=== PATIENT | female | born 2000 | race Asian ===

== ENCOUNTER 2021-06-27 08:00 | Inpatient (IN) ==
[2021-06-27] MEDS ORDERED: OXYTOCIN 30 UNITS/500 ML BAG IV PRN ×3 (09:07→23:18)
--- NOTE | 2021-06-27 09:16 | History & Physical Report ---
Date of Service June 27, 2021 Assessment & Plan (1) Encounter for supervision of normal in multigravida, antepartum: Plan: Admit to L&D, EFM/toco. IVF. Labs. Pen G for GBS prophylaxis. Glucose check on admission. Pt prefers to try to labor naturally if she can, will wait to see if ctx increase on their own - discussed that if no labor pattern by about 12:45, then would recommend pitocin at that time, she is agreeable with this plan. Electric Organ Assembler iPad used. Admission and Anticipated Discharge Date Admission Date: June 27, 2021 History of Present Illness Chief Complaint: rupture of membranes Primary Care Provider: NO PCP 20yo @ 38 06/21, spontaneous rupture of membranes for clear fluid at 6:45 am today. No bleeding. + movement. Feeling irreg ctx. with late transfer of care from [facility]. Diagnosed with gestational diabetes within the past few weeks, had been taking glucophage for the first 5 months of . Appears to be a large baby based on recent US. GBS+. Rh negative, rec'd Rhogam. Allergies Allergy/AdvReac Type Severity Reaction Status Date / Time No Known Allergies Allergy Verified 06/22/21 12:49 Home Medications Medication Instructions Recorded Confirmed Type ferrous sulfate [Iron (ferrous PO 06/15/21 06/22/21 History sulfate)] folic acid PO 06/15/21 06/22/21 History cephalexin 500 mg capsule 500 mg PO TID 7 Days #21 cap 06/18/21 06/22/21 Rx Patient History Medical History Missed Surgical History H/O dilation and curettage Family History Uncle Diabetes Denies family history of Ovarian cancer Prostate cancer Breast cancer Lung cancer Colorectal cancer Cancer Social History (Updated 06/15/21 @ 13:11 by Keya Ortega RN) Smoking Status: Never smoker Second Hand Exposure: No; Hx Alcohol Use: No Hx Substance Use: No Preferred Language: Icelandic Communication Ability: IPAD Communication Tools: IPad Hearing Ability: Normal Electric Organ Assembler Required: Yes Beliefs That Will Affect Care: Cultural Cultural Beliefs: The patient is [employer]. marital status: marital status details: Jose Carlos Crawford (27) [phone] Current Living Situation: Spouse Current Living Situation Comment: FOB and no pets current occupational status: unemployed Other Information That Helps Us Care for You: No Feels Safe at Home: Yes Safety Concerns: Feels Safe At This Time Assistive Devices: None Review of Systems All systems reviewed & are unremarkable except as noted in HPI & below Physical Exam Physical Exam: SVE 3/80/-2 Constitutional: WD/WN, vitals as above Respiratory: normal respiratory effort, lungs clear to auscultation no respiratory distress Cardiovascular: Rate/Rhythm: regular rate and regular rhythm Gastrointestinal (Abdomen): Inspection/Auscultation: abdomen normal to inspection Percussion/Palpation: abdomen soft; abdomen nontender Gravid. No s/s chorio or abruption. Skin: no rashes, warm and dry Psychiatric: A+Ox3, euthymic affect Results & Data ([facility]) Vital Signs (Past 12 Hours) Vital Signs Temp Pulse Resp BP 06/27/21 08:21 36.8 C 20 06/27/21 08:11 63 116/74 Monitoring External Monitor FHT Cat 1, reactive [place] Q 7 Coding Level of Care Code None Diagnoses Encounter for supervision of normal in multigravida, antepartum Z34.80
[2021-06-27] MEDS ORDERED: PENICILLIN G POTASSIUM 6 MU in DEXTROSE 5% 250 ML IV ONE (09:30)
[2021-06-27 09:33] LABS: Hematocrit (blood only) 38.1 % (37-47); Hemoglobin 13.1 g/dL (12.0-16.0); Mean Corpuscular Hemoglobin 31.6 pg (25-34); Mean Corpuscular Hgb Conc 34.4 g/dL (32-36); Mean Platelet Volume 12.7 fL (7.4-10.4); Platelet Count 144 K/uL (130-400); RDW Coefficient of Variation 11.7 % (11.5-14.5); Red Blood Count 4.14 M/uL (4.2-5.4); White Blood Count 6.15 K/uL (4.8-10.8)
[2021-06-27] MEDS: LACTATED RINGER'S 1,000 ML IV PRN ×3 (10:09→16:06)
[2021-06-27] MEDS ORDERED: DEXTROSE 50% 50 ML SYRINGE IV PRN (11:07)
[2021-06-27] MEDS ORDERED: INSULIN REGULAR 250 UNITS in SODIUM CHLORIDE 0.9% 247.5 ML IV PRN ×2 (11:07→19:15)
[2021-06-27] MEDS ORDERED: SODIUM CHLORIDE 0.9% 1000ML 1,000 ML IV PRN (11:07)
[2021-06-27] MEDS ORDERED: DEXTROSE 5% 1,000 ML IV PRN (11:07)
[2021-06-27] MEDS ORDERED: CARBOHYDRATES FOR HYPOGLYCEMIA PO PRN (11:45)
[2021-06-27] MEDS ORDERED: GLUCAGON FOR INJ 1 MG VIAL IM PRN (11:45)
[2021-06-27] MEDS ORDERED: GLUCOSE 10 TABS/TUBE PO PRN (11:45)
[2021-06-27] MEDS ORDERED: GLUCOSE 40% GEL 15 GM TUBE PO PRN (11:45)
[2021-06-27] MEDS: PENICILLIN G POTASSIUM 3 MU in DEXTROSE 5% 100 ML IV PRN ×2 (13:58→17:52)
[2021-06-27] MEDS ORDERED: SODIUM CHLORIDE 0.9% INJ 10 ML VIAL ONE (14:16)
[2021-06-27] MEDS ORDERED: ePHEDrine sulfate 50 MG/ML AMP ONE (14:16)
[2021-06-27] MEDS ORDERED: BUPIVACAINE 0.25% 30 ML VIAL ONE (14:16)
[2021-06-27] MEDS ORDERED: fentaNYL 2MCG/ML ROPIVACAINE 1.25MG/ML 100 ML BAG EPI ONE (14:17)
[2021-06-27] MEDS ORDERED: fentaNYL citrate 100 MCG/2 ML VIAL ONE (14:17)
[2021-06-27] MEDS ORDERED: NALBUPHINE HCL INJ 10 MG/ML AMP IV PRN (14:20)
[2021-06-27] MEDS ORDERED: fentaNYL 2MCG/ML ROPIVACAINE 1.25MG/ML 100 ML BAG EPI PRN (14:20)
[2021-06-27] MEDS ORDERED: ONDANSETRON INJ 2 MG/ML 2 ML VIAL IV PRN (14:20)
[2021-06-27] MEDS ORDERED: diphenhydrAMINE 50 MG/ML VIAL IV PRN (14:20)
[2021-06-27] MEDS ORDERED: ePHEDrine sulfate 50 MG/ML AMP IV PRN (14:20)
[2021-06-27] MEDS ORDERED: NALOXONE HCL 0.4 MG/1 ML VIAL/CARP IV PRN (14:20)
[2021-06-27] MEDS ORDERED: NALOXONE HCL 1 MG in SODIUM CHLORIDE 0.9% 1000ML 1,000 ML IV PRN (14:20)
--- NOTE | 2021-06-27 14:37 | Anesthesiology Consultation ---
Date of Service June 27, 2021 Assessment & Plan Chart Review Chart Review: Patient NOT seen in Pre Admission Testing and Acceptable Risk for Labor Epidural Consults Requested none ASA ASA2 Proposed Anesthesia Anesthesia Type: Labor Epidural and CSE Risk / Benefits Reviewed With: PT / POA / Parent / Guardian, Accepts Plan and Informed Consent Obtained History Height/Weight Height: 5 ft 3.78 in Weight: 69.853 kg Allergies Allergy/AdvReac Type Severity Reaction Status Date / Time No Known Allergies Allergy Verified 06/22/21 12:49 Medications Home Medications Medication Instructions Recorded Confirmed Last Taken ferrous sulfate [Iron (ferrous PO 06/15/21 06/22/21 06/26/21 sulfate)] folic acid PO 06/15/21 06/22/21 06/26/21 cephalexin 500 mg capsule 500 mg PO TID 7 Days #21 cap 06/18/21 06/22/21 06/26/21 Active Medications Generic Name Dose Route Start Last Admin Trade Name Freq PRN Reason Stop Dose Admin Oxytocin 30 units in 500 mls @ 3 mls/hr 06/27/21 09:07 06/27/21 13:14 Pitocin IV 06/29/21 09:06 0.18 units/hr .Q24H PRN 3 mls/hr Labor Induction/Augmentation Titration Protocol 0.18 UNITS/HR Lactated Ringer's 1,000 mls @ 125 mls/hr 06/27/21 09:07 06/27/21 14:32 Lr IV 06/29/21 09:06 999 mls/hr .Q8H PRN Administration L&D Protocol Protocol Penicillin G Potassium 3 mu/ 106 mls @ 100 mls/hr 06/27/21 12:07 06/27/21 13:58 Dextrose IV 07/07/21 12:06 100 mls/hr Q4H PRN Administration GBS(+) Until Delivery Dextrose 1,000 mls @ 100 mls/hr 06/27/21 11:07 06/27/21 13:00 D5w IV 07/27/21 11:06 75 mls/hr .Q10H PRN Infusion BSG 180 or below Protocol Insulin Human Regular 250 250 mls @ 0 mls/hr 06/27/21 11:07 06/27/21 14:01 units/ Sodium Chloride IV 07/27/21 11:06 1 units/hr .Q0M PRN 1 mls/hr BSG 80mg/dL or ABOVE Titration Protocol Per Protocol NPO Date Last Intake of Fluids: 06/27/21 Time Last Intake of Fluids: 13:00 Date Last Intake of Solids: 06/27/21 Time Last Intake of Solids: 06:45 Past Medical History Medical History Gestational diabetes mellitus Missed Exercise / Class Metabolic Activity II 4-5 Yardwork/Stairs/Walk up hill Past Family History Family History Uncle Diabetes Denies family history of Ovarian cancer Prostate cancer Breast cancer Lung cancer Colorectal cancer Cancer Past Surgical History Surgical History H/O dilation and curettage Past Anesthesia History No Hx of Anesthesia Complications and No Family Hx of Anesthesia Complications History of PONV No Hx of PONV and No Hx of Motion Sickness Social History Smoking Status: Never smoker Hx Alcohol Use: No Hx Substance Use: No Review of Systems no chest pain or sob Physical Exam Vital Signs Last Vital Signs Temp 36.8 C 06/27/21 12:39 Pulse 66 06/27/21 14:33 Resp 18 06/27/21 13:58 BP 132/84 06/27/21 13:58 Pulse Ox 100 06/27/21 14:33 ENMT Mouth: no TMJ abnormality Thyromental Distance: > or= 3.5 Finger Breadths Mallampati Class: II Neck normal visual inspection Respiratory normal respiratory effort Auscultation: lungs clear to auscultation bilaterally Cardiovascular Rate/Rhythm: regular rate and regular rhythm Musculoskeletal Spine: normal cervical ROM Neurologic moves all extremities Psychiatric Orientation: alert and oriented x 3 Testing Laboratory Results 06/27/21 09:20 Blood Type B Negative 06/27/21 09:20 Antibody Screen POSITIVE A 06/27/21 09:20 06/27/21 06/27/21 06/27/21 14:01 13:01 12:03 POC Glucose 108 H 107 H 107 H 06/27/21 06/27/21 06/27/21 11:03 10:00 08:14 POC Glucose 159 H 125 H 116 H
--- NOTE | 2021-06-27 18:10 | Labor Progress Brief Note ---
Date of Service June 27, 2021 Subjective Comfortable with epidural. Blood sugars stable. FHT Cat 1 [place] Q 2-4 SVE per RN similar to earlier exam. Will continue increasing pitocin as able to obtain better contraction pattern. Assessment & Plan Admission and Anticipated Discharge Date Admission Date: June 27, 2021 Results & Data ([facility]) Vital Signs (Past 12 Hours) Vital Signs Temp Pulse Resp BP Pulse Ox 06/27/21 18:06 63 123/57 L 06/27/21 18:03 64 96 06/27/21 17:58 64 96 06/27/21 17:53 60 96 06/27/21 17:49 62 110/74 06/27/21 17:48 63 95 06/27/21 17:43 61 96 06/27/21 17:38 62 96 06/27/21 17:35 71 127/79 06/27/21 17:33 63 96 06/27/21 17:28 63 96 06/27/21 17:23 61 96 06/27/21 17:20 63 112/71 06/27/21 17:18 62 96 06/27/21 17:13 73 98 06/27/21 17:08 66 97 06/27/21 17:03 75 97 06/27/21 16:58 65 96 06/27/21 16:53 90 96 06/27/21 16:50 36.8 C 65 18 107/67 06/27/21 16:48 64 95 06/27/21 16:43 72 95 06/27/21 16:38 67 96 06/27/21 16:35 66 110/67 06/27/21 16:33 65 96 06/27/21 16:28 69 96 06/27/21 16:23 69 96 06/27/21 16:20 62 111/67 06/27/21 16:18 78 96 06/27/21 16:13 64 96 06/27/21 16:08 77 96 06/27/21 16:05 77 18 105/68 06/27/21 16:03 65 96 06/27/21 15:58 73 96 06/27/21 15:53 65 98 06/27/21 15:49 80 20 105/65 06/27/21 15:48 71 96 06/27/21 15:43 71 97 06/27/21 15:38 62 97 06/27/21 15:35 63 20 139/68 06/27/21 15:33 65 97 06/27/21 15:28 60 96 06/27/21 15:23 59 L 97 06/27/21 15:18 64 20 150/70 H 99 06/27/21 15:14 64 88/56 L 06/27/21 15:13 65 97 06/27/21 15:08 68 143/59 H 97 06/27/21 15:05 61 18 92/54 L 06/27/21 15:03 36.8 C 61 16 103/66 97 06/27/21 15:01 65 18 102/64 06/27/21 14:59 65 102/58 L 06/27/21 14:58 68 99 06/27/21 14:57 61 105/56 L 06/27/21 14:53 65 98/66 L 99 06/27/21 14:51 66 100/66 06/27/21 14:49 72 103/67 06/27/21 14:48 70 95 06/27/21 14:47 60 18 118/78 06/27/21 14:45 67 115/82 06/27/21 14:43 72 100 06/27/21 14:38 71 99 06/27/21 14:33 66 100 06/27/21 14:28 58 L 100 06/27/21 13:58 71 18 132/84 06/27/21 12:39 36.8 C 61 20 110/72 06/27/21 11:04 36.8 C 70 20 127/78 06/27/21 09:00 36.8 C 18 06/27/21 08:21 36.8 C 20 06/27/21 08:11 63 116/74 Coding Level of Care Code None
--- NOTE | 2021-06-27 20:20 | Labor Progress Brief Note ---
Date of Service June 27, 2021 Subjective Comfortable with epidural, not feeling urge to push yet. FHT Cat 1 [place] Q 2 SVE anterior lip/1+ Continue labor, will notify us when she is feeling urge to push. Assessment & Plan Admission and Anticipated Discharge Date Admission Date: June 27, 2021 Results & Data ([facility]) Vital Signs (Past 12 Hours) Vital Signs Temp Pulse Resp BP Pulse Ox 06/27/21 20:13 61 98 06/27/21 20:08 61 98 06/27/21 20:06 61 111/69 06/27/21 20:03 61 97 06/27/21 20:00 18 06/27/21 19:58 61 98 06/27/21 19:53 59 L 98 06/27/21 19:51 62 105/71 06/27/21 19:48 60 98 06/27/21 19:43 61 97 06/27/21 19:38 67 98 06/27/21 19:34 65 103/69 06/27/21 19:33 65 97 06/27/21 19:30 18 06/27/21 19:28 66 98 06/27/21 19:23 75 99 06/27/21 19:18 78 98 06/27/21 19:13 61 98 06/27/21 19:08 58 L 98 06/27/21 19:06 36.7 C 16 06/27/21 19:05 36.7 C 16 06/27/21 19:04 55 L 119/80 06/27/21 19:03 58 L 99 06/27/21 18:58 58 L 98 06/27/21 18:53 60 96 06/27/21 18:50 58 L 118/78 06/27/21 18:48 59 L 96 06/27/21 18:43 96 06/27/21 18:38 59 L 96 06/27/21 18:34 60 20 114/75 06/27/21 18:33 61 96 06/27/21 18:28 61 95 06/27/21 18:23 62 96 06/27/21 18:20 57 L 116/77 06/27/21 18:18 59 L 96 06/27/21 18:13 59 L 96 06/27/21 18:08 60 96 06/27/21 18:06 63 20 123/57 L 06/27/21 18:03 64 96 06/27/21 17:58 64 96 06/27/21 17:53 60 96 06/27/21 17:49 62 110/74 06/27/21 17:48 63 95 06/27/21 17:43 61 96 06/27/21 17:38 62 96 06/27/21 17:35 71 20 127/79 06/27/21 17:33 63 96 06/27/21 17:28 63 96 06/27/21 17:23 61 96 06/27/21 17:20 63 112/71 06/27/21 17:18 62 96 06/27/21 17:13 73 98 06/27/21 17:08 66 97 06/27/21 17:03 75 97 06/27/21 16:58 65 96 06/27/21 16:53 90 96 06/27/21 16:50 36.8 C 65 18 107/67 06/27/21 16:48 64 95 06/27/21 16:43 72 95 06/27/21 16:38 67 96 06/27/21 16:35 66 110/67 06/27/21 16:33 65 96 06/27/21 16:28 69 96 06/27/21 16:23 69 96 06/27/21 16:20 62 111/67 06/27/21 16:18 78 96 06/27/21 16:13 64 96 06/27/21 16:08 77 96 06/27/21 16:05 77 18 105/68 06/27/21 16:03 65 96 06/27/21 15:58 73 96 06/27/21 15:53 65 98 06/27/21 15:49 80 20 105/65 06/27/21 15:48 71 96 06/27/21 15:43 71 97 06/27/21 15:38 62 97 06/27/21 15:35 63 20 139/68 06/27/21 15:33 65 97 06/27/21 15:28 60 96 06/27/21 15:23 59 L 97 06/27/21 15:18 64 20 150/70 H 99 06/27/21 15:14 64 88/56 L 06/27/21 15:13 65 97 06/27/21 15:08 68 143/59 H 97 06/27/21 15:05 61 18 92/54 L 06/27/21 15:03 36.8 C 61 16 103/66 97 06/27/21 15:01 65 18 102/64 06/27/21 14:59 65 102/58 L 06/27/21 14:58 68 99 06/27/21 14:57 61 105/56 L 06/27/21 14:53 65 98/66 L 99 06/27/21 14:51 66 100/66 06/27/21 14:49 72 103/67 06/27/21 14:48 70 95 06/27/21 14:47 60 18 118/78 06/27/21 14:45 67 115/82 06/27/21 14:43 72 100 06/27/21 14:38 71 99 06/27/21 14:33 66 100 06/27/21 14:28 58 L 100 06/27/21 13:58 71 18 132/84 06/27/21 12:39 36.8 C 61 20 110/72 06/27/21 11:04 36.8 C 70 20 127/78 06/27/21 09:00 36.8 C 18 06/27/21 08:21 36.8 C 20 Coding Level of Care Code None
--- NOTE | 2021-06-27 22:30 | Delivery Summary ---
Vaginal Delivery Summary Date of Service June 27, 2021 Vaginal Delivery Summary and 2nd Degree LAC Vaginal Delivery Summary: Pre-delivery diagnoses: 20yo @ 38 3/7, spontaneous labor, GBS+, gestational diabetes, late transfer of care Post-delivery diagnoses: same, shoulder dystocia Procedure: spontaneous vaginal delivery Surgeon: Desiree Lawson DO Complications: none Findings: Viable male . Apgars: 8/9. Weight pending, please see nursery records. Estimated blood loss: 300ml Description of delivery: The patient arrived after spontaneous rupture of membranes at home and onset of labor, required intrapartum insulin protocol and penicillin for GBS prophylaxis, and progressed to complete with epidural anesthesia. She then began to push. She spontaneously vaginally delivered a viable from the cephalic presentation. The head delivered in BRADEN position. Attempt was made to gently deliver the anterior shoulder, this did not come and turtle sign of head was noted. The patient was repositioned in McRobert's maneuver, and the anterior shoulder was attempted again - this was unsuccessful. Posterior shoulder was attempted. The posterior arm was then delivered - swept gently midline and delivered, and then the baby w as able to deliver. The baby was placed on mother's abdomen and a spontaneous cry was heard. Delayed cord clamping was employed, and the cord was doubly clamped and cut. Cord blood was obtained. The placenta was delivered spontaneously intact with a 3-vessel cord. The uterus and vagina were swept of clots and debris. IV pitocin was given. The uterus became firm. The cervix, vagina, and perineum were inspected and a 2nd degree perineal laceration was noted and repaired in standard fashion with 3-0 Vicryl. There were some small areas of raw mucosal edges - not actively bleeding, but small amount of ooze - this was made hemostatic with both direct pressure and Siomara powder. Excellent hemostasis was observed. The mother and baby are recovering in stable and good condition in the room. Sponge, needle and instrument counts were correct x 2. I debriefed /patient about the shoulder dystocia. Desiree Lawson DO [facility] Vaginal Delivery Charge Vaginal Delivery Codes: 42360 global code for the antepartum, delivery, and post- Delivery Type Details: and 2nd Degree LAC
[2021-06-27] MEDS ORDERED: ACETAMINOPHEN 325 MG TAB PO PRN (23:18)
[2021-06-27] MEDS ORDERED: oxyCODONE/ACETAMINOPHEN 5mg/325mg TAB PO PRN (23:18)
[2021-06-27] MEDS ORDERED: bisacodyL 10 MG SUPP PR PRN (23:18)
[2021-06-27] MEDS ORDERED: HYDROCORTISONE ACETATE 25 MG SUPP PR PRN (23:18)
[2021-06-27] MEDS ORDERED: DIPHTHERIA/TETANUS/PERTUSSIS 0.5 ML SYR/VIAL IM ONE (23:18)
[2021-06-27] MEDS ORDERED: BENZOCAINE 20% AER SPR 82.5 GM CAN EXT PRN (23:18)
[2021-06-28] MEDS: IBUPROFEN 600 MG TAB PO PRN ×3 (01:26→18:13)
[2021-06-28 06:16] LABS: Hematocrit (blood only) 34.3 % (37-47); Hemoglobin 11.7 g/dL (12.0-16.0)
--- NOTE | 2021-06-28 07:18 | Obstetrical Progress Note ---
Date of Service <Enrique Treviño MD - Last Filed: 06/28/21 07:18> June 28, 2021 Assessment & Plan <Enrique Treviño MD - Last Filed: 06/28/21 07:18> (1) Encounter for care and examination after delivery: PPD 1: stable, routine management * patient voiding and ambulating without difficulty * pain well controlled on analgesia * tolerating regular diet * * reassess d/c readiness tomorrow morning <Desiree Lawson DO - Last Filed: 06/28/21 07:29> (1) Encounter for care and examination after delivery: Subjective <Enrique Treviño MD - Last Filed: 06/28/21 07:18> Mary is a 20-year-old who is now PPD 1 following spontaneous vaginal delivery at 38.3 weeks. Reports feeling well overall this morning. Abdominal pain well managed on analgesics. Voiding well. Tolerating meals well and able to ambulate without difficulty or dizziness. Some persistent lochia with some improvement this morning. . Review of Systems Denies fever, chills, sweats Denies shortness of breath, difficulty breathing, chest pain, palpitations, chest pressure. Denies breast pain. Denies dysuria. Denies headache or changes in vision Physical Exam <Enrique Treviño MD - Last Filed: 06/28/21 07:18> General: Alert, oriented. No acute distress. Cardiac: Regular rate and rhythm, no murmurs/rubs/gallops. Respiratory: Clear to auscultation bilaterally a/p, no wheezes/rales/rhonchi. No increased work of breathing. Symmetrical chest rise. No respiratory distress. Abdomen: Soft, nontender, nondistended. Bowel sounds present. Uterus: Uterine fundus firm, palpable at the umbilicus. Lower Extremities: No lower extremity edema or swelling. No deep calf pain. Emilia's negative bilaterally.. Results & Data ([facility]) <Enrique Treviño MD - Last Filed: 06/28/21 07:18> Vital Signs (Past 12 Hours) Vital Signs Temp Pulse Pulse Resp BP BP Pulse Ox 06/28/21 03:30 36.8 C 73 16 94/64 L 06/28/21 00:09 71 114/60 03/14/22 00:05 71 18 114/60 06/27/21 23:49 58 L 127/74 06/27/21 23:35 18 06/27/21 23:34 85 120/74 06/27/21 23:19 77 118/73 06/27/21 23:05 71 18 117/72 06/27/21 23:04 71 117/72 06/27/21 22:50 71 18 117/72 06/27/21 22:49 125 H 137/77 06/27/21 22:35 71 18 117/72 06/27/21 22:34 82 124/56 L 06/27/21 22:20 18 06/27/21 22:19 61 119/66 06/27/21 22:05 36.8 C 18 06/27/21 22:04 81 102/60 06/27/21 22:03 81 93 06/27/21 21:58 82 99 06/27/21 21:53 82 99 06/27/21 21:49 80 108/66 06/27/21 21:48 81 99 06/27/21 21:43 71 99 06/27/21 21:40 83 94 06/27/21 21:38 115 H 95 06/27/21 21:35 71 138/79 06/27/21 21:33 83 100 06/27/21 21:32 64 87 L 06/27/21 21:30 20 06/27/21 21:28 73 96 06/27/21 21:26 67 93 06/27/21 21:23 68 98 06/27/21 21:20 20 06/27/21 21:19 59 L 126/78 06/27/21 21:18 60 97 06/27/21 21:13 61 98 06/27/21 21:08 63 99 06/27/21 21:05 60 130/79 06/27/21 21:03 63 98 06/27/21 21:00 20 06/27/21 20:58 63 99 06/27/21 20:53 72 98 06/27/21 20:49 59 L 129/80 06/27/21 20:48 66 99 06/27/21 20:45 36.8 C 20 06/27/21 20:43 69 98 06/27/21 20:38 92 H 98 06/27/21 20:36 65 108/71 06/27/21 20:33 66 99 06/27/21 20:30 18 06/27/21 20:28 66 100 06/27/21 20:23 64 99 06/27/21 20:20 70 100/58 L 06/27/21 20:18 64 99 06/27/21 20:13 61 98 06/27/21 20:08 61 98 06/27/21 20:06 61 111/69 06/27/21 20:03 61 97 06/27/21 20:00 18 06/27/21 19:58 61 98 06/27/21 19:53 59 L 98 06/27/21 19:51 62 105/71 06/27/21 19:48 60 98 06/27/21 19:43 61 97 06/27/21 19:38 67 98 06/27/21 19:34 65 103/69 06/27/21 19:33 65 97 06/27/21 19:30 18 06/27/21 19:28 66 98 06/27/21 19:23 75 99 06/27/21 19:18 78 98 06/27/21 19:13 61 98 <Desiree Lawson DO - Last Filed: 06/28/21 07:29> Co-Signing Physician Notes Resident Physician Supervision Note: I interviewed and examined the patient. Discussed with Dr. Treviño and agree with findings and plan as documented in the note. Any exceptions or clarifications are listed here: PPD#1 doing well, routine postop care. Documented By: Desiree Lawson DO Resident Activity Tracking <Enrique Treviño MD - Last Filed: 06/28/21 07:18> Resident Involvement: Resident Care Provided Care Provided: Adult Hospital Medicine
[2021-06-28] MEDS: PRENATAL VITAMIN 1 TAB PO SCH (08:25)
[2021-06-28] MEDS: DOCUSATE SODIUM 100 MG CAP PO SCH ×2 (08:26→21:45)
--- NOTE | 2021-06-28 10:21 | Anesthesia Procedure Note ---
Date of Service June 28, 2021 Anesthesia Post Epidural Note Vital Signs Vital Signs: Temp Pulse Resp BP Pulse Ox 36.6 C 72 18 93/55 L 98 06/28/21 07:25 06/28/21 07:25 06/28/21 07:25 06/28/21 07:25 06/28/21 07:25 Notes Mental Status: alert / awake / arousable and participated in evaluation Nausea / Vomiting: adequately controlled Pain: adequately controlled Airway Patency, RR, SpO2: stable & adequate BP & HR: stable & adequate Hydration State: stable & adequate Neuraxial Anesthesia: was administered and sensory block is resolving Anesthetic Complications: no major complications apparent and Pt Satisfied with anesthetic care Epidural: Removed without complications and With tip intact
[2021-06-28] MEDS ORDERED: bisacodyL 5 MG TABEC PO SCH (20:00)
--- NOTE | 2021-06-29 08:07 | Obstetrical Progress Note ---
Date of Service <Enrique Treviño MD - Last Filed: 06/29/21 08:07> June 29, 2021 Assessment & Plan <Enrique Treviño MD - Last Filed: 06/29/21 08:07> (1) Encounter for care and examination after delivery: PPD 2: stable, routine management * patient voiding and ambulating without difficulty * pain well controlled on analgesia * tolerating regular diet * * anticipate case d/c today * 6-week outpatient OB follow-up <Linda Durant MD - Last Filed: 06/29/21 08:22> (1) Encounter for care and examination after delivery: Subjective <Enrique Treviño MD - Last Filed: 06/29/21 08:07> Mary is a 20-year-old who is now PPD #2 following spontaneous vaginal delivery at 38.3 weeks. Reports feeling well overall this morning. Moderate abdominal cramping pain well managed on analgesics. Voiding well. Tolerating meals well and able to ambulate with out assistance, or dizziness. Bleeding is improved this morning. . Review of Systems Denies fever, chills, sweats Denies shortness of breath, difficulty breathing, chest pain, palpitations, chest pressure. Denies breast pain. Denies dysuria. Denies headache or changes in vision Physical Exam <Enrique Treviño MD - Last Filed: 06/29/21 08:07> General: Alert, oriented. No acute distress. Cardiac: Regular rate and rhythm, no murmurs/rubs/gallops. Respiratory: Clear to auscultation bilaterally a/p, no wheezes/rales/rhonchi. No increased work of breathing. Symmetrical chest rise. No respiratory distress. Abdomen: Soft, nontender, nondistended. Bowel sounds present. Uterus: Uterine fundus firm, palpable at the umbilicus. Lower Extremities: No lower extremity edema or swelling. No deep calf pain. Emilia's negative bilaterally. Results & Data ([facility]) <Enrique Treviño MD - Last Filed: 06/29/21 08:07> Vital Signs (Past 12 Hours) Vital Signs Temp Pulse Resp BP 06/28/21 23:35 37.0 C 72 18 99/62 L 06/28/21 20:10 36.8 C 70 16 113/70 <Linda Durant MD - Last Filed: 06/29/21 08:22> Co-Signing Physician Notes Resident Physician Supervision Note: I interviewed and examined the patient. Discussed with Dr. Treviño and agree with findings and plan as documented in the note. Any exceptions or clarifications are listed here: PP2 s/p , doing well. Mild abd tenderness, improved w/ tyl/ibuprofen. VSS, exam benign and wnl. Meeting all pp milestones, stable for d/c home today Documented By: Linda Durant MD Resident Activity Tracking <Enrique Treviño MD - Last Filed: 06/29/21 08:07> Resident Involvement: Resident Care Provided Care Provided: Adult Hospital Medicine
[2021-06-29] MEDS: DOCUSATE SODIUM 100 MG CAP PO SCH (08:16)
[2021-06-29] MEDS: PRENATAL VITAMIN 1 TAB PO SCH (08:16)
[2021-06-29] MEDS: IBUPROFEN 600 MG TAB PO PRN (08:16)
== END 2021-06-29 18:35 | disposition home or self-care (01) | DRG 807 ==
LOC: OPB 08:00 → 4S1 08:03 → 4S2 06-28 00:45

== ENCOUNTER 2024-02-01 08:06 | Inpatient (IN) ==
[2024-02-01] MEDS ORDERED: OXYTOCIN 30 UNITS/NSS 30 UNITS/500 ML BAG IV PRN ×2 (09:32→15:02)
[2024-02-01] MEDS ORDERED: LIDOCAINE 1% LOCAL 20 ML VIAL INFIL PRN (09:32)
[2024-02-01 10:22] LABS: Hematocrit (blood only) 36.9 % (37.0-47.0); Hemoglobin 12.5 g/dl (12.0-16.0); Mean Corpuscular Hemoglobin 30.5 pg (25.0-34.0); Mean Corpuscular Hgb Conc 33.9 g/dL (32.0-36.0); Mean Platelet Volume 11.4 fL (9.4-12.4); Platelet Count 174 K/uL (130-400)
[2024-02-01] MEDS: OXYTOCIN 30 UNITS/NSS 30 UNITS/500 ML BAG IV PRN (10:30)
[2024-02-01] MEDS: LACTATED RINGER'S 1,000 ML IV PRN (10:31)
--- NOTE | 2024-02-01 10:49 | History & Physical Report ---
Date of Service February 01, 2024 Assessment & Plan (1) Insulin controlled gestational diabetes mellitus (GDM) during : Plan: IOL. Pitocin, IV access. OK for epidural when she desires. Admission and Anticipated Discharge Date Admission Date: February 01, 2024 History of Present Illness Chief Complaint: IOL Primary Care Provider: [facility] PCP 23yo @ 40 0/7, IOL for postdates. GDM on insulin *Wkly NSTs @32wks and Twice wkly @36wks *Serial growth US @28wks *Deliver by [facility] - 01/31 Need for Rhogam d/t Rh negative mother -Given 11/09/23 ML Allergies Allergy/AdvReac Type Severity Reaction Status Date / Time No Known Allergies Allergy Verified 01/31/24 10:07 Home Medications Medication Instructions Recorded Confirmed Type Morning Sickness Support 1 tab PO DIRECTED PRN 07/11/23 01/31/24 History NAUSEA/VOMITING famotidine 10 mg tablet 10 mg PO DIRECTED PRN 07/11/23 02/01/24 History HEARTBURN/INDIGESTION vit no.95-ferrous 1 tab PO DAILY 07/11/23 02/01/24 History fumarate 28 mg-folic acid 800 mcg tablet () pen needle, diabetic 32 gauge x #150 ea 10/04/23 01/31/24 Rx " insulin NPH isoph U-100 human 100 30 unit (0.3 mL) subcut DAILY #9 mL 01/05/24 02/01/24 Rx unit/mL (3 mL) subcutaneous pen (Novolin N FlexPen) insulin regular human 100 unit/mL See Rx Instructions subcut 01/05/24 02/01/24 Rx (3 mL) subcutaneous pen (Novolin R .COMPLEX #9 mL FlexPen) Patient History Medical History Missed Surgical History H/O dilation and curettage x2 Family History Uncle Diabetes maternal and paternal uncles Grandfather (Maternal) No problems noted. Grandfather (Paternal) Hypertension Stroke Denies family history of Ovarian cancer Prostate cancer Breast cancer Lung cancer Colorectal cancer Cancer Social History (Updated 02/01/24 @ 09:28 by Eusebia Acevedo RN) Smoking Status: Never smoker Second Hand Exposure: No; Do You Dip or Chew Tobacco: No; Hx Alcohol Use: No Hx Substance Use: No Preferred Language: Turkmen Communication Ability: Effective Communication Ability Comment: intermittantly translates moldovan for patient Communication Tools: IPad Visual Impairment: No Limitations Hearing Ability: Normal Magician/Illusionist Required: Yes and No Beliefs That Will Affect Care: Tenriism Tenriism Beliefs: hindu and Cultural Cultural Beliefs: hindu marital status: marital status details: Jose Carlos Zarate (29) [phone] Current Living Situation: Spouse and Family Current Living Situation Comment: lives with spouse, son, no pets current occupational status: unemployed current occupation: homemaker Other Information That Helps Us Care for You: No Feels Safe at Home: Yes Safety Concerns: Feels Safe At This Time Diet: vegetarian Assistive Devices: None Review of Systems All systems reviewed & are unremarkable except as noted in HPI & below Physical Exam Physical Exam: T Cat 1 [place] rare SVE 4/80/-2 Constitutional: WD/WN, vitals as above Respiratory: normal respiratory effort, lungs clear to auscultation no respiratory distress Cardiovascular: Rate/Rhythm: regular rate and regular rhythm Gastrointestinal (Abdomen): Inspection/Auscultation: abdomen normal to inspection Percussion/Palpation: abdomen soft; abdomen nontender Gravid. No s/s chorio or abruption. Skin: no rashes, warm and dry Psychiatric: A+Ox3, euthymic affect Results & Data Vital Signs (Past 12 Hours) Vital Signs Temp Pulse Resp BP 02/01/24 10:37 75 02/01/24 10:37 104/59 L 02/01/24 08:55 36.7 C 75 18 109/57 L 02/01/24 08:30 18 02/01/24 08:30 36.6 C 18 02/01/24 08:20 75 109/57 L Coding Level of Care Code None Diagnoses Insulin controlled gestational diabetes mellitus (GDM) during O24.414
[2024-02-01] MEDS ORDERED: ePHEDrine sulfate 50 MG/ML AMP IV PRN (14:02)
[2024-02-01] MEDS ORDERED: NALOXONE HCL 1 MG in SODIUM CHLORIDE 0.9% 1,000 ML IV PRN (14:02)
[2024-02-01] MEDS ORDERED: NALOXONE HCL 0.4 MG/1 ML VIAL/CARP IV PRN (14:02)
[2024-02-01] MEDS ORDERED: fentANYL 2 MCG/ML BUPIVacaine 0.125%-NSS 100ML BAG EPI PRN (14:02)
[2024-02-01] MEDS ORDERED: ROPIVACAINE 0.5% PF 5 MG/ML 20 ML VIAL EPI PRN (14:02)
[2024-02-01] MEDS ORDERED: NALBUPHINE HCL INJ 10 MG/ML AMP IV PRN (14:02)
[2024-02-01] MEDS ORDERED: BUPIVACAINE 0.25% PF 30 ML VIAL EPI PRN (14:02)
[2024-02-01] MEDS ORDERED: fentaNYL citrate PF 100 MCG/2 ML VIAL EPI PRN (14:02)
[2024-02-01] MEDS ORDERED: LIDOCAINE 2% MPF LOCAL 5 ML VIAL EPI PRN (14:02)
[2024-02-01] MEDS ORDERED: SODIUM CHLORIDE 0.9% PF INJ 10 ML VIAL EPI PRN (14:02)
[2024-02-01] MEDS ORDERED: diphenhydrAMINE 50 MG/ML VIAL IV PRN (14:02)
--- NOTE | 2024-02-01 14:02 | Anesthesiology Consultation ---
Date of Service February 01, 2024 Assessment & Plan (1) Encounter for pre-operative examination: Chart Review Chart Review: Patient NOT seen in Pre Admission Testing and Acceptable Risk for Labor Epidural Consults Requested none History Height/Weight Height: 5 ft 5.75 in Weight: 70.216 kg Allergies Allergy/AdvReac Type Severity Reaction Status Date / Time No Known Allergies Allergy Verified 01/31/24 10:07 Medications Home Medications Medication Instructions Recorded Confirmed Last Taken Morning Sickness Support 1 tab PO DIRECTED PRN 07/11/23 01/31/24 Unknown NAUSEA/VOMITING famotidine 10 mg tablet 10 mg PO DIRECTED PRN 07/11/23 02/01/24 Unknown HEARTBURN/INDIGESTION vit no.95-ferrous 1 tab PO DAILY 07/11/23 02/01/24 01/31/24 23:00 fumarate 28 mg-folic acid 800 mcg tablet () pen needle, diabetic 32 gauge x #150 ea 10/04/23 01/31/24 Unknown " insulin NPH isoph U-100 human 100 30 unit (0.3 mL) subcut DAILY #9 mL 01/05/24 02/01/24 01/31/24 23:00 unit/mL (3 mL) subcutaneous pen (Novolin N FlexPen) insulin regular human 100 unit/mL See Rx Instructions subcut 01/05/24 02/01/24 02/01/24 (3 mL) subcutaneous pen (Novolin R .COMPLEX #9 mL 0700 FlexPen) Active Medications Generic Name Dose Route Start Last Admin Trade Name Freq PRN Reason Stop Dose Admin Oxytocin 30 units in 500 mls @ 11 mls/hr 02/01/24 09:32 02/01/24 13:00 Pitocin 30 Units/Nss IV 02/03/24 09:31 0.66 units/hr .Q24H PRN 11 mls/hr Labor Induction/Augmentation Titration Protocol 0.66 UNITS/HR Lactated Ringer's 1,000 mls @ 125 mls/hr 02/01/24 09:32 02/01/24 13:30 Lr IV 02/03/24 09:31 999 mls/hr .Q8H PRN Infusion L&D Protocol Protocol Past Medical History Medical History Missed Past Family History Family History Uncle Diabetes maternal and paternal uncles Grandfather (Maternal) No problems noted. Grandfather (Paternal) Hypertension Stroke Denies family history of Ovarian cancer Prostate cancer Breast cancer Lung cancer Colorectal cancer Cancer Past Surgical History Surgical History H/O dilation and curettage x2 Social History Smoking Status: Never smoker Do You Dip or Chew Tobacco: No Hx Alcohol Use: No Hx Substance Use: No Physical Exam Vital Signs Last Vital Signs Temp 97.5 F L 02/01/24 12:00 Pulse 78 02/01/24 13:14 Resp 18 02/01/24 13:30 BP 111/55 L 02/01/24 13:14 Testing Laboratory Results 02/01/24 09:54 02/01/24 02/01/24 11:21 11:07 POC Glucose 94 61 L*
[2024-02-01] MEDS: ePHEDrine sulfate 50 MG/ML AMP ONE (14:37)
[2024-02-01] MEDS: BUPIVACAINE 0.25% PF 30 ML VIAL ONE (14:37)
[2024-02-01] MEDS: fentaNYL citrate PF 100 MCG/2 ML VIAL ONE (14:37)
[2024-02-01] MEDS: fentANYL 2 MCG/ML BUPIVacaine 0.125%-NSS 100ML BAG ONE (14:37)
[2024-02-01] MEDS: LIDOCAINE 2%/EPINEPHRINE 1:200,000 20 ML PF ONE (14:37)
[2024-02-01] MEDS: SODIUM CHLORIDE 0.9% PF INJ 10 ML VIAL ONE (14:38)
[2024-02-01] MEDS: BUPIVACAINE 0.25% PF 30 ML VIAL EPI STA (14:38)
[2024-02-01] MEDS: fentaNYL citrate PF 100 MCG/2 ML VIAL EPI STA (14:38)
[2024-02-01] MEDS: OXYTOCIN 10 UNITS/ML VIAL ONE (14:38)
[2024-02-01] MEDS: SODIUM CHLORIDE 0.9% PF INJ 10 ML VIAL EPI STA (14:38)
[2024-02-01] MEDS: LIDOCAINE 2%/EPINEPHRINE 1:200,000 20 ML PF EPI STA (14:38)
[2024-02-01] MEDS ORDERED: oxyCODONE/ACETAMINOPHEN 5mg/325mg TAB PO PRN (15:02)
[2024-02-01] MEDS ORDERED: DIPHTHER/TETAN/PERTUS Vaccine (Tdap, Adol/Adult) 0.5mL IM ONE (15:02)
[2024-02-01] MEDS ORDERED: ACETAMINOPHEN 325 MG TAB PO PRN (15:02)
[2024-02-01] MEDS ORDERED: HYDROCORTISONE ACETATE 25 MG SUPP PR PRN (15:02)
[2024-02-01] MEDS ORDERED: bisacodyL 10 MG SUPP PR PRN (15:02)
[2024-02-01] MEDS ORDERED: FAMOTIDINE 10 MG TABLET PO PRN (15:02)
[2024-02-01] MEDS ORDERED: BENZOCAINE 20% SPRY 85 APPLN/85 GM CAN EXT PRN (15:02)
--- NOTE | 2024-02-01 15:08 | Delivery Summary ---
Vaginal Delivery Summary Date of Service February 01, 2024 Vaginal Delivery Summary [facility] Vaginal Delivery Summary: Pre-delivery diagnoses: 23yo @ 40 0/7, GDM on insulin, Rh negative, IOL Post-delivery diagnoses: same Procedure: spontaneous vaginal delivery Surgeon: Desiree Lawson DO Complications: none Findings: Viable female . Apgars: 8/9 . Weight pending, please see nursery records Estimated Q blood loss: 217 Description of delivery: The patient progressed to complete without anesthesia. She felt urge to push, was checked and found to be 1+ station with complete dilation, AROM clear fluid, then began to push. After 2 contractions, she s pontaneously vaginally delivered a viable from the cephalic presentation. The head delivered in BYRON position. Nuchal x 1, easily reduced. The anterior shoulder delivered, followed by the posterior shoulder, followed by the body. The baby was placed on mother's abdomen and a spontaneous cry was heard. Delayed cord clamping was employed, and the cord was doubly clamped and cut. A segment was retained for cord gases. Cord blood was obtained. The placenta was delivered spontaneously intact with a 3-vessel cord. The uterus and vagina were swept of clots and debris. IV pitocin was given. The uterus became firm. The cervix, vagina, and perineum were inspected and no lacerations were noted. Excellent hemostasis was observed. The mother and baby are recovering in stable and good condition in the room. Sponge and instrument counts were correct x 2. Desiree Lawson DO [facility] Vaginal Delivery Charge Vaginal Delivery Codes: 71349 global code for the antepartum, delivery, and post- Delivery Type Details: [facility]
[2024-02-01] MEDS: IBUPROFEN 600 MG TAB PO PRN (20:43)
[2024-02-01] MEDS: DOCUSATE SODIUM 100 MG CAP PO SCH (20:44)
--- NOTE | 2024-02-02 05:56 | Obstetrical Progress Note ---
Date of Service <Gabriel SchmidViji Farmer DO - Last Filed: 02/02/24 06:44> February 02, 2024 Assessment & Plan <Gabriel SchmidViji Farmer DO - Last Filed: 02/02/24 06:44> (1) state: 23yo day 1 following Feels well today, BP slightly low but otherwise VSS Continue care Ambulation and as tolerated Pain control with ibuprofen as needed Hgb: 12.5 Home: today if possible Follow up with Dr. Lawson in 6wks (2) Gestational diabetes mellitus: can discontinue insulin Gestational diabetes mellitus control: unspecified Trimester: unspecified trimester Qualified Code(s): O24.419 - Gestational diabetes mellitus in , unspecified control <Desiree Lawson, DO - Last Filed: 02/02/24 06:46> (1) state: (2) Gestational diabetes mellitus: Subjective <Gabriel Farmer DO - Last Filed: 02/02/24 06:44> 23yo day 2 following Ambulation: yes Voiding: urinating, no BM Passing gas: yes Diet tolerance: improving, regular Lochia: small Feeding type: breast, bottle when necessary Current pain: mild lower abd Patient in no acute distress this AM. Denies fever, body aches, chills, headache, SOB, n/v/d, abdominal pain, LE swelling/pain, or numbness/tingling. Review of Systems as above <Desiree Lawson, DO - Last Filed: 02/02/24 06:46> 23yo day 1 following Ambulation: yes Voiding: urinating, no BM Passing gas: yes Diet tolerance: improving, regular Lochia: small Feeding type: breast, bottle when necessary Current pain: mild lower abd Patient in no acute distress this AM. Denies fever, body aches, chills, headache, SOB, n/v/d, abdominal pain, LE swelling/pain, or numbness/tingling. Physical Exam <Gabriel Farmer DO - Last Filed: 02/02/24 06:44> General: A&Ox4, patient NAD, nontoxic in appearance Skin: warm, dry, intact HEENT: NC/AT, anicteric sclerae, conjunctive w/o injection Heart: RRR, no m/r/g Lungs: clear to auscultation b/l, equal air entry, no wheezing, rales, rhonchi Abd: +BS, uterus firm, fundus at level of umbilicus, no tenseness or guarding Ext: no erythema, swelling, or tenderness to palpation; Emilia's neg, no clubbing or cyanosis Neuro: speech intact, no facial droop, moving all ext on command and spontaneously Results & Data <Gabriel Farmer DO - Last Filed: 02/02/24 06:44> Vital Signs (Past 12 Hours) Vital Signs Temp Pulse Resp BP Pulse Ox O2 Del Method 02/01/24 23:50 37.2 C 78 16 101/59 L 98 Room Air 02/01/24 20:40 36.6 C 89 16 94/55 L 96 Room Air Supervising Physician <Desiree Lawson DO - Last Filed: 02/02/24 06:46> Co-Signing Physician Notes Resident Physician Supervision Note: I interviewed and examined the patient. Discussed with Dr. Myers and agree with findings and plan as documented in the note. Any exceptions or clarifications are listed here: PPD#1 doing well. Desires DC home. Followup 6w PP. Documented By: Desiree Lawson DO Resident Activity Tracking <Gabriel Farmer DO - Last Filed: 02/02/24 06:44> Resident Involvement: Resident Care Provided Care Provided: OB Delivery
[2024-02-02] MEDS: PRENATAL VITAMIN 1 TAB PO SCH (07:15)
[2024-02-02 07:27] VITALS: RESP 16; O2SAT 99
[2024-02-02 07:41] LABS: Hematocrit (blood only) 31.6 % (37.0-47.0); Hemoglobin 10.9 g/dl (12.0-16.0); Mean Corpuscular Hgb Conc 34.5 g/dL (32.0-36.0); Mean Corpuscular Volume 89.8 fL (80.0-100.0); Mean Platelet Volume 11.2 fL (9.4-12.4); Platelet Count 160 K/uL (130-400); RDW Coefficient of Variation 12.2 % (11.5-14.5); Red Blood Count 3.52 M/uL (4.20-5.40); White Blood Count 9.31 K/ul (4.8-10.8)
[2024-02-02 14:01] VITALS: BP 109/71; PULSE 67; TEMP 98.4
[2024-02-02] MEDS ORDERED: bisacodyL 5 MG TABEC PO SCH (20:00)
== END 2024-02-02 16:49 | disposition home or self-care (01) | DRG 807 ==
LOC: 4S1 08:06 → 4E2 16:40
DX: Z3A.40 40 weeks gestation of pregnancy; O69.81X0 Labor and delivery complicated by cord around neck, without compression, not applicable or unspecified; O24.424 Gestational diabetes mellitus in childbirth, insulin controlled; Z37.0 Single live birth; O26.893 Other specified pregnancy related conditions, third trimester; O48.0 Post-term pregnancy; Z23 Encounter for immunization